=== PATIENT | female | born 1955 | race Caucasian/White ===

== ENCOUNTER 2017-05-16 15:30 | Outpatient (CLI) | payer BC ==
[2017-05-16 16:42] LABS: Hematocrit 39.6 % (36.0-47.0); Mean Platelet Volume 8.1 fL (7.4-10.4); Red Blood Cell (RBC) Count 4.33 mill/uL (4.20-5.40); White Blood Cell (WBC) Count 5.6 thou/uL (4.8-10.8)
[2017-05-16 16:50] LABS: Bilirubin Negative (Negative); Blood, Urine Small (Negative); Glucose, Urine (Dipstick) Negative (Negative); Ketone, Urine Negative (Negative); Nitrite Negative (Negative); Protein, Urine (Dipstick) Negative (Neg-Trace); Urobilinogen 0.2 mg/dL (0.2-1.0)
[2017-05-16 16:55] LABS: Hyaline Casts/LPF 0-3 HYALINE CAST LPF (0-3 Hyaline); RBC/HPF 0-3 HPF (0-3); Squamous Epithelial 0-3 HPF (0-3); WBC/HPF 0-3 HPF (0-3)
[2017-05-16 17:02] LABS: Anion Gap 11 mmol/L (10-20); BUN (Urea Nitrogen) 8 mg/dL (9.8-20.1); Calc. Creatinine Clearance 0 mL/min (70-130); Calcium 8.9 mg/dL (7.8-10.44); Carbon Dioxide 26 mmol/L (22-29); Chloride 107 mmol/L (98-107); Estimated GFR-MDRD 59
[2017-05-16 17:03] LABS: Bacteria/HPF Rare-Few HPF (None Seen)
== END 2017-05-16 15:31 | disposition home or self-care (01) ==
LOC: LABBT 15:30
PROVIDERS: ATTEND Orthopaedic Surgery
DX: Z01.818 Encounter for other preprocedural examination (principal); M75.101 Unspecified rotator cuff tear or rupture of right shoulder, not specified as traumatic
CPT/HCPCS: 80048; 81001; 85027; 93005; 93010

== ENCOUNTER 2017-05-17 08:50 | Day surgery (SDC) | payer BC ==
[2017-05-16 15:56] VITALS: BMI 31.3
[2017-05-17] MEDS ORDERED: CEFAZOLIN/Water 2 GM/20 ML SYRINGE ONE (09:09)
[2017-05-17] MEDS ORDERED: Midazolam HCl 2 mg/2 ml Vial ONE (09:17)
[2017-05-17] MEDS ORDERED: Fentanyl 100 MCG/2 ML VIAL ONE (09:17)
[2017-05-17] MEDS ORDERED: Ropivacaine 0.2% HCl/PF 20 ML ONE (09:17)
[2017-05-17] MEDS ORDERED: Ondansetron HCl/PF 4 MG/2 ML Vial IVP PRN (09:31)
[2017-05-17] MEDS ORDERED: Promethazine HCl 25 MG/ML VIAL IM PRN (09:31)
[2017-05-17] MEDS ORDERED: Ropivacaine 0.2% 550 ML 550 ML NERVE BLCK SCH (09:31)
[2017-05-17] MEDS ORDERED: Zolpidem Tartrate 5 MG TAB PO PRN (09:31)
[2017-05-17] MEDS ORDERED: HYDROcodone/Acetaminophen 10/325 mg Tablet PO PRN ×2 (09:31)
[2017-05-17] MEDS ORDERED: traMADol HCl 50 MG TAB PO PRN ×2 (09:31)
[2017-05-17] MEDS ORDERED: Fentanyl 100 MCG/2 ML VIAL IV PRN (09:32)
[2017-05-17] MEDS ORDERED: Phenylephrine 10 MG/NS 250 ML 250 ML ONE (11:21)
[2017-05-17] MEDS ORDERED: Bupivacaine/Epinephrine 0.25% 30 ML VIAL ONE (11:35)
[2017-05-17] MEDS ORDERED: Glycopyrrolate 0.2 MG/ML 5 ML SYRINGE ONE (11:58)
[2017-05-17] MEDS ORDERED: PHENYLEPHRINE-NS 100 MCG/ML 10 ML SYRINGE ONE (11:58)
[2017-05-17] MEDS ORDERED: Dexamethasone 20 MG/5 ML VIAL ONE (11:58)
[2017-05-17] MEDS ORDERED: Ondansetron HCl/PF 4 MG/2 ML Vial ONE ×2 (11:58→14:23)
[2017-05-17] MEDS ORDERED: Propofol 200 MG/20 ML VIAL ONE (11:58)
[2017-05-17] MEDS ORDERED: Ropivacaine 0.5% HCl/PF (150 MG/30 ML VIAL) ONE (13:43)
[2017-05-17] MEDS ORDERED: Morphine 4 MG/ML VIAL ONE (14:08)
--- NOTE | 2017-05-17 14:14 | OP ---
DATE OF PROCEDURE: 05/17/2017 PREOPERATIVE DIAGNOSIS: Right rotator cuff tear, full thickness. POSTOPERATIVE DIAGNOSIS: Right rotator cuff tear, full thickness. PROCEDURE PERFORMED: Right rotator cuff repair, arthroscopically. STAFF: Dayday Rodríguez M.D. MACHINE OPERATOR CANE CUTTER: None. ANESTHESIA: Catalino. The patient received general endotracheal intubation interscalene block. ESTIMATED BLOOD LOSS: 20 mL. TOURNIQUET TIME: None. IMPLANTS: 5.5 corkscrews, 5.5 SwiveLock. ANTIBIOTICS: Ancef 2 grams. COMPLICATIONS: None. HISTORY OF PRESENT ILLNESS: Ms. Maciel is a pleasant 61-year-old female who works at [employer]. e is right hand dominant. She complains of right shoulder pain as high as 8-10. MRI showed a full t hickness tear. I discussed with patient the risks and benefits of a right rotator cuff repair to inc lude pain, scar, bleeding, infection, damage to vital structures, decreased range of motion or streng th, continued pain despite surgical intervention, failure of repair to heal. She understood all thes e risks and benefits and elected to proceed. PROCEDURE IN DETAIL: Timeout was performed designating the patient's right upper extremity as the op erative site based on sight, consents and markings. After completion of timeout, the patient's right shoulder was then prepped and draped in sterile fashion. She was in a beach chair position, well pa dded. She had a posterior working portal and anterior working portal, visualized intraarticularly, t here is no full defect. There is a Grafton complex, type 1 SLAP without peel back, the biceps looks g ood throughout its course and there was degenerative fraying of the subscapularis. I saw the rotator cuff intraarticularly, which I debrided the bone from an intra-articular position. I moved to the s ubacromial, placed my portal, took pictures, took down a portion of the CA ligament. I debrided off the bursa. There was subcutaneous tissue on the bone to create a space for my repair, I took the sha marissa and shaved the bone to help with bleeding bone for my reattachment. I placed a single 5.5 corks[address] anchor in place. I did not feel there was room for a secondary anchor in the position that I was at. I placed 2 sutures anteriorly, 2 sutures posteriorly, tied horizontal mattress posteriorly then anteriorly, used a second row to lay the rotator cuff repair down. I anchored in place, had a good firm fixation. I liked my alignment. There was little bit of dog ears, but I liked the position of the overall cuff. I then washed, closed with 3-0 nylon. The patient was placed in an abduction sling. She will follow up with me in 2 weeks. She will be gi joseluis pain medications for followup. She will move her elbow, wrist, and hand until followup.
== END 2017-05-17 16:00 | disposition home or self-care (01) ==
LOC: SDC 08:50
PROVIDERS: ATTEND Orthopaedic Surgery
PROC: 0LQ14ZZ Repair Right Shoulder Tendon, Percutaneous Endoscopic Approach (ICD-10-PCS; principal; 2017-05-17)
DX: M75.121 Complete rotator cuff tear or rupture of right shoulder, not specified as traumatic (principal); Z90.710 Acquired absence of both cervix and uterus; Z98.890 Other specified postprocedural states; M19.90 Unspecified osteoarthritis, unspecified site; E03.9 Hypothyroidism, unspecified
CPT/HCPCS: 96374; A4306; C1713; J1100; J2250; J2270; J2405; J2704; J2795; J3010

== ENCOUNTER 2019-03-06 05:41 | Day surgery (SDC) | payer BC ==
[2019-03-05 10:43] VITALS: BMI 30.4
[2019-03-06] MEDS ORDERED: Phenylephrine 2.5% Ophth Soln 5 ML BOT ONE (05:50)
[2019-03-06] MEDS ORDERED: Cyclopentolate 1% Opth Drop 2 ML BOT ONE (05:50)
[2019-03-06] MEDS ORDERED: Fluorouracil 100 MG, Enoxaparin Sodium 25 MG, EPINEPHrine 0.3 MG in Ophthalmic Irrigati... IRR SCH (06:00)
[2019-03-06] MEDS ORDERED: Midazolam HCl 2 mg/2 ml Vial ONE (06:27)
[2019-03-06] MEDS ORDERED: Fentanyl 100 MCG/2 ML VIAL ONE (06:27)
[2019-03-06] MEDS ORDERED: PROPOFOL 20 ML ONE (06:27)
--- NOTE | 2019-03-06 11:26 | OP ---
DATE OF PROCEDURE: 03/06/2019 PREOPERATIVE DIAGNOSIS: Macular hole, right eye. POSTOPERATIVE DIAGNOSIS: Macular hole, right eye. PROCEDURES PERFORMED: Pars plana vitrectomy and internal limiting membrane peel, right eye. ANESTHESIA: Local with monitored anesthesia care. PROCEDURE IN DETAIL: The patient was identified in the preoperative holding area. Appropriate informed consent for the planned surgical procedure on the right eye had been obtained. The patient was transported to the operative suite. Appropriate cardiopulmonary monitoring was established. Local anesthesia was obtained using retrobulbar modified Van Lint lid block using 50:50 mixture of 4% lidocaine and 0.75% bupivacaine. The patient was prepped and draped in usual sterile manner for ophthalmic surgery of the right eye. Lid speculum was placed in the right eye. 25-gauge trocar was placed in the conjunctiva and sclera superotemporally, inferotemporally, and supranasally. Infusion line was placed inferotemporally. Light pipe vitreous cutter was inserted to the eye. Core vitrectomy was performed. Posterior hyaloid face was elevated and trimmed into the retinal periphery without complication. Indocyanine green dye was infused on the posterior pole x1 identifying the internal limiting membrane. This was elevated using membrane scraper and peeled across the macula in one piece using end-gripping forceps. Complete air-fluid exchange was performed with 10 minutes being left for fluid to drain posteriorly. A 28% sulfur hexafluoride gas was infused into the eye. Trocars were removed. Eye was noted to retain pressure well. Retrobulbar Kenalog and subconjunctival Ancef were placed. Antibiotic ointment was placed. Eye was patched and shielded. The patient was taken to postoperative recovery unit in good condition having suffered no immediate perioperative complications. The patient was instructed to keep patch and shield on, avoid lifting or bending. Followup appointment with Dr. Mckeon. Job ID: [id number]
[2019-03-06] MEDS ORDERED: PROPOFOL 200 MG/20 ML VIAL ONE (13:06)
[2019-03-06] MEDS ORDERED: Lidocaine 4% PF 5 ML AMP ONE (13:06)
[2019-03-06] MEDS ORDERED: Lidocaine 1% PF 5 ML VIAL ONE (13:06)
[2019-03-06] MEDS ORDERED: Triamcinolone 40 MG/ML VIAL ONE (13:06)
[2019-03-06] MEDS ORDERED: CEFAZOLIN 1 GM VIAL ONE (13:06)
[2019-03-06] MEDS ORDERED: Indocyanine Green 25 MG/10 ML VIAL ONE (13:06)
[2019-03-06] MEDS ORDERED: Maxitrol 0.1% Opth Oint 3.5 GM TUBE ONE (13:06)
[2019-03-06] MEDS ORDERED: Bupivacaine 10 ML VIAL ONE (13:06)
== END 2019-03-06 08:54 | disposition home or self-care (01) ==
LOC: SDC 05:41
PROVIDERS: ATTEND Ophthalmology Retina Specialist
PROC: 08T43ZZ Resection of Right Vitreous, Percutaneous Approach (ICD-10-PCS; principal; 2019-03-06)
PROC: 08NE3ZZ Release Right Retina, Percutaneous Approach (ICD-10-PCS; principal; 2019-03-06)
DX: H35.341 Macular cyst, hole, or pseudohole, right eye (principal); Z79.899 Other long term (current) drug therapy
CPT/HCPCS: 67025; J0171; J0690; J1650; J2001; J2250; J2704; J3010; J3301; J3490; J9190

== ENCOUNTER 2019-04-24 10:12 | Day surgery (SDC) | payer BC ==
[2019-04-23 11:11] VITALS: BMI 30.4
[~2019-04-24 10:12] MED LIST: Fentanyl 100 MCG/2 ML VIAL ONE; Fluorouracil 100 MG, Enoxaparin Sodium 25 MG, EPINEPHrine 0.3 MG in Ophthalmic Irrigati... IRR SCH; Midazolam HCl 2 mg/2 ml Vial ONE
[2019-04-24] MEDS ORDERED: Cyclopentolate 1% Opth Drop 2 ML BOT ONE (10:32)
[2019-04-24] MEDS ORDERED: Phenylephrine 2.5% Ophth Soln 5 ML BOT ONE (10:32)
[2019-04-24] MEDS ORDERED: CEFAZOLIN 1 GM VIAL ONE (12:28)
[2019-04-24] MEDS ORDERED: Lidocaine 1% PF 5 ML VIAL ONE (12:28)
[2019-04-24] MEDS ORDERED: PROPOFOL 200 MG/20 ML VIAL ONE (12:28)
[2019-04-24] MEDS ORDERED: Indocyanine Green 25 MG/10 ML VIAL ONE (12:28)
[2019-04-24] MEDS ORDERED: Maxitrol 0.1% Opth Oint 3.5 GM TUBE ONE (12:28)
[2019-04-24] MEDS ORDERED: Triamcinolone 40 MG/ML VIAL ONE (12:28)
--- NOTE | 2019-04-24 20:10 | OP ---
DATE OF PROCEDURE: 04/24/2019 PREOPERATIVE DIAGNOSIS: Macular hole, right eye. POSTOPERATIVE DIAGNOSIS: Macular hole, right eye. PROCEDURE PERFORMED: Pars plana vitrectomy, internal limiting membrane peel, right eye. ANESTHESIA: Local with monitored anesthesia care. DESCRIPTION OF PROCEDURE: The patient was identified in the preoperative holding area. Appropriate informed consent for the planned surgical procedure on the right eye had been obtained. The patient was transported to the operative suite. Appropriate cardiopulmonary monitoring was established. Local anesthesia was obtained using retrobulbar modified Van Lint lid block using 50:50 mixture of 4% lidocaine and 0.75% bupivacaine. The patient was prepped and draped in usual sterile manner for ophthalmic surgery, right eye. The speculum was placed in the right eye. 25-gauge trocar was placed in conjunctiva and sclera superotemporally, inferotemporally, and supranasally. Infusion line was placed inferotemporally. Light pipe vitreous cutter inserted into the eye. Core vitrectomy was performed. Indocyanine green dye was infused on the posterior pole x1, identifying the internal limiting membrane. A previous peel had been performed, but a new peel was created on the temporal aspect superiorly and a flap of ILM was reflected over the macular hole. Complete air-fluid exchange was performed with 10 minutes being left for fluid drain posteriorly. 15% propane gas was infused into the eye. Trocars were removed. Superior sclerotomy was suture closed. The eye was noted to retain pressure well. Retrobulbar Kenalog and subconjunctival Ancef were placed. Antibiotic ointment was placed. Eye was patched and shielded. The patient was taken to postoperative recovery unit in good condition having suffered no immediate perioperative complications. The patient was instructed to keep patch and shield on, position the head up. Followup appointment with Dr. Mckeon. Job ID: [id number]
== END 2019-04-24 14:15 | disposition home or self-care (01) ==
LOC: SDC 10:12
PROVIDERS: ATTEND Ophthalmology Retina Specialist
PROC: 08NE3ZZ Release Right Retina, Percutaneous Approach (ICD-10-PCS; principal; 2019-04-24)
PROC: 08T43ZZ Resection of Right Vitreous, Percutaneous Approach (ICD-10-PCS; principal; 2019-04-24)
DX: H35.341 Macular cyst, hole, or pseudohole, right eye (principal); Z79.899 Other long term (current) drug therapy
CPT/HCPCS: 67025; J0171; J0690; J1650; J2001; J2250; J2704; J3010; J3301; J9190

== ENCOUNTER 2019-12-03 13:01 | Outpatient (CLI) | payer BC ==
--- NOTE | 2019-12-03 13:39 | MMO ---
Bilateral MAMMO Bilat Screen [facility]. CLINICAL HISTORY: Patient is 64 years old and is seen for screening. The patient has no family history of breast cancer. The patient has no personal history of cancer. VIEWS: The views performed were: bilateral craniocaudal with tomosynthesis and bilateral mediolateral oblique with tomosynthesis. FILMS COMPARED: The present examination has been compared to prior imaging studies performed at [facility] on 05/15/2008 and 08/27/2015, and at [facility] on 02/24/2003. This study has been interpreted with the assistance of computer-aided detection. MAMMOGRAM FINDINGS: There are scattered fibroglandular densities. There are no suspicious masses, suspicious calcifications, or new areas of architectural distortion. IMPRESSION: THERE IS NO MAMMOGRAPHIC EVIDENCE OF MALIGNANCY. A ROUTINE FOLLOW-UP MAMMOGRAM IN 1 YEAR IS RECOMMENDED. THE RESULTS OF THIS EXAM WERE SENT TO THE PATIENT. ACR BI-RADS Category 1 - Negative MAMMOGRAPHY NOTE: 1. A negative mammogram report should not delay a biopsy if a dominant of clinically suspicious mass is present. 2. Approximately 10% to 15% of breast cancers are not detected by mammography. 3. Adenosis and dense breasts may obscure an underlying neoplasm. Reported by: HEMANT VALDIVIA MD Electonically Signed: [id number]
--- NOTE | 2019-12-03 14:21 | BD ---
BONE DENSITOMETRY: INDICATION: Postmenopausal screening. FINDINGS: Lumbar Spine: BMD (g/cm2) L1 0.745 T-Score: -2.2 L2 0.711 T-Score: -2.9 L3 0.735 T-Score: -3.2 L4 0.799 T-Score: -2.4 L1-L4 0.749 T-Score: -2.7 Femoral Neck: 0.688 T-Score: -1.5 Total Femur: 0.810 T-Score: -1.1 Impression: 1. Bone mineral density of the lumbar spine indicates osteoporosis. 2. Bone mineral density of the femoral neck indicates osteopenia. POS: AGW
== END 2019-12-03 13:02 | disposition home or self-care (01) ==
LOC: BICMAMMO 13:01
PROVIDERS: ATTEND Family Medicine
DX: Z12.31 Encounter for screening mammogram for malignant neoplasm of breast (principal); Z13.820 Encounter for screening for osteoporosis; M81.0 Age-related osteoporosis without current pathological fracture; M85.859 Other specified disorders of bone density and structure, unspecified thigh
CPT/HCPCS: 77063; 77067; 77080